=== PATIENT | male | born 1970 | race African-American/Black ===

== ENCOUNTER 2024-10-19 19:19 | Emergency (ER) | payer MEDICAID, SELFPAY ==
--- NOTE | 2024-10-19 19:15 | ECG_ITS ---
APPROVED REPORT Exam: Resting ECG HR:73 bpm ECG Measurements Heart Rate 73 AXES WI 160 P 56 QRSd 95 QRS 30 QT 393 T 42 QTc 420 Conclusion Sinus rhythm Electronically signed by : JOEL CRAVEN, 10/19/2024 21:26:17
[2024-10-19 19:21] VITALS: BP 159/116; PULSE 90; RESP 20; TEMP 36.7; O2SAT 100; BMI 26.7
--- NOTE | 2024-10-19 19:21 | XR_ITS ---
PROCEDURE INFORMATION: Exam: XR Chest Exam date and time: 10/19/2024 7:32 PM Age: 53 years old Clinical indication: Chest pain radiating to back; Additional info: Rib pain TECHNIQUE: Imaging protocol: Radiologic exam of the chest. Views: 2 views. COMPARISON: No relevant prior studies available. FINDINGS: Lungs: Unremarkable. No consolidation. Pleural spaces: Unremarkable. No pleural effusion. No pneumothorax. Heart/Mediastinum: Unremarkable. No cardiomegaly. Bones/joints: Unremarkable. IMPRESSION: No acute findings.
--- NOTE | 2024-10-19 19:24 | HMH.EDGENADL ---
Discharge Plan Disposition Patient Disposition: Home, Self-Care Condition: Good Referrals Follow up/Referrals: Provider,Referral, MD [Primary Care Provider] - See instructions Clinical Impressions Clinical Impression: Chest pain Instructions Patient Instructions: DI for Atypical Chest Pain Print Language Print Language: Mongolian Discharge ED Provider: Devante Castro General Adult HPI <Anamika Brunner (ED), PSYCHIATRIC NURSING ASSISTANT - Last Filed: 10/19/24 21:25> General Chief complaint: Chest Pain Stated complaint: Chest pain Time Seen by Provider: 10/19/24 19:20 History of Present Illness HPI narrative: 53-year-old male who presents to the ED today for complaint of chest pain and back pain that started 2 days ago. He says it got worse last night so he came to the ER today. He has had 1 episode of nausea and vomiting. He does not have shortness of air or abdominal pain. No fevers or chills. He had 1 episode of nausea and vomiting 2 days ago. He has no history of heart problems. He is on no meds and no allergies. Related Data Allergies Allergy/AdvReac Type Severity Reaction Status Date / Time No Known Allergies Allergy Verified 10/19/24 19:30 PFSH <Anamika Brunner (ED), PSYCHIATRIC NURSING ASSISTANT - Last Filed: 10/19/24 21:25> [facility] Disclaimer: The information contained in this section may have been updated after the patient was seen, as this information can be updated by other users. Social History (Updated 10/19/24 @ 20:25 by Anamika Brunner (ED), PSYCHIATRIC NURSING ASSISTANT) Smoking Status: Current every day smoker alcohol intake: never current occupational status: employed Travel in the last 8 weeks?: None Have you lived/traveled outside [place] in past 30 days?: No Contact w/someone who lives/traveled outside US past 30 days?: No Exposure to someone with infectious disease in past 14 days?: No Do you have a fever (greater than 100.4 F or 38 C)?: No Have you tested positive for COVID-19?: No Exposed to someone with COVID-19 in past 14 days?: No Do you have a sore throat?: No Do you have a cough?: No Do you have any weakness?: No Do you have any diarrhea?: No Are you experiencing any unusual bleeding?: No Do you have any muscle aches/pain?: No Do you have any abdominal pain?: No Are you experiencing loss of taste or smell?: No <Anamika Brunner (ED), PSYCHIATRIC NURSING ASSISTANT - Last Filed: 10/19/24 21:25> ROS Obtained: Yes Systems reviewed as appropriate & no additional complaints except as documented Constitutional Constitutional: Reports as per HPI Physical Exam <Anamika Brunner (ED), PSYCHIATRIC NURSING ASSISTANT - Last Filed: 10/19/24 21:25> General General appearance: alert and in no apparent distress Head Head exam: atraumatic and normocephalic Eye Eye exam: Present normal appearance, PERRL and EOMI ENT ENT exam: Present normal exam, normal oropharynx and mucous membranes moist Neck Neck exam: Present full ROM and trachea midline Respiratory Respiratory exam: Present normal lung sounds bilaterally Cardiovascular Cardiovascular exam: Present regular rate, normal rhythm, normal heart sounds, +S1 and +S2 Abdominal Exam Abdominal exam: Present soft and normal bowel sounds Extremities Exam Extremities exam: Present normal inspection, full ROM and normal capillary refill Back Exam Back exam: Present normal inspection Neurological Exam Neurological exam: Present alert, oriented X3 and normal gait Skin Skin exam: Present warm, dry and intact Medical Decision Making <Anamikajulius Brunner (ED), PSYCHIATRIC NURSING ASSISTANT - Last Filed: 10/19/24 21:25> Medical Records Screening: Per USPSTF and CDC recommendations, given the prevalence of disease in our region, it is our hospital?s policy to screen for HIV and viral Hepatitis for all patients aged 18 and over and those with ongoing risk factors. Hal Inquiry Pt receiving controlled substance: No Vital Signs: 10/19/24 19:21 10/19/24 21:38 Temperature 98.1 F 98.9 F Temperature Source Oral Pulse Rate 62 Pulse Rate [Left] 90 Respiratory Rate 20 20 Blood Pressure 168/89 H Blood Pressure [Right Arm] 159/116 H Blood Pressure Mean [Right Arm] 130 02 Sat by Pulse Oximetry 100 Oxygen Delivery Method Room Air Room Air Lab Data Lab Results 10/19/24 19:20: WBC 7.7, RBC 5.17, Hgb 14.8, Hct 45.4, MCV 87.8, MCH 28.6, MCHC 32.6, RDW 11.9, Plt Count 327, MPV 9.4, Neut % (Auto) 32.7 L, Lymph % (Auto) 55.1 H, [place] % (Auto) 10.7 H, Eos % (Auto) 0.7, Baso % (Auto) 0.7, Neut # (Auto) 2.5, Lymph # (Auto) 4.2, [place] # (Auto) 0.8, Eos # (Auto) 0.1, Baso # (Auto) 0.1, Sodium 141, Potassium 3.7, Chloride 109 H, Carbon Dioxide 22, Anion Gap 13.7, BUN 9, Creatinine 1.20, Estimated Creat Clear 84, Estimated GFR 64, Est GFR ( Amer) 77, Glucose 105 H, Calcium 8.9, Magnesium 2.0, Total Bilirubin 0.6, AST 35, ALT 30, Alkaline Phosphatase 98, Troponin I < 0.01, Total Protein 8.2, Albumin 5.0, Globulin 3.2, Albumin/Globulin Ratio 1.6, Lipase 421 H, HCV Ab FLORECITA w/Rflx PCR Qn Negative, HIV Ag/Ab Combo Qual Negative 10/19/24 19:20 10/19/24 19:20 Orders (Tests/Meds): ED MEDICATIONS Discontinued Medications Generic Name Dose Route Start Last Admin Trade Name Freq PRN Reason Stop Dose Admin Aspirin 324 mg 10/19/24 19:20 10/19/24 19:32 Aspirin 81mg Chewable Tablet PO 10/19/24 19:21 324 mg ONCE ONE Administration Famotidine 20 mg 10/19/24 19:20 10/19/24 19:32 Famotidine 20mg/2ml Vial IV 10/19/24 19:21 20 mg ONCE ONE Administration Iopamidol 75 ml 10/19/24 20:23 10/19/24 20:24 Iopamidol-370 (76%);100ml Bottle IV 10/19/24 20:24 75 ml ONCE ONE Administration Morphine Sulfate 4 mg 10/19/24 19:25 10/19/24 19:33 Morphine 4mg/Ml Syringe IV 10/19/24 19:26 4 mg ONCE ONE Administration Ondansetron HCl 4 mg 10/19/24 19:25 10/19/24 19:32 Ondansetron 4mg/2ml Vial IV 10/19/24 19:26 4 mg ONCE ONE Administration Sodium Chloride 8 ml 10/19/24 19:20 Sodium Chloride 0.9% 10ml Vial IV 11/18/24 19:19 NEEDED PRN dilute pepcid Sodium Chloride 10 ml 10/19/24 20:23 10/19/24 20:24 Sodium Chloride 0.9% 10ml Syr (Rad Only) IV 10/19/24 20:24 10 ml ONCE ONE Administration ORDERS Category Date Time Status CT abdomen pelvis w con Stat Cat Scan 10/19/24 20:13 Completed Chest XR 2 view (NOT portable) [XR chest 2V] Stat Exams 10/19/24 19:21 Completed CBC [Complete Blood Count Auto Diff] Stat Lab 10/19/24 19:20 Completed Comprehensive Metabolic Panel Stat Lab 10/19/24 19:20 Completed HIV Combo Stat Lab 10/19/24 19:20 Completed Hepatitis C Ab Qual. W/ RFX Stat Lab 10/19/24 19:20 Completed Lipase Stat Lab 10/19/24 19:20 Completed Magnesium Stat Lab 10/19/24 19:20 Completed Trop I [Troponin I] Stat Lab 10/19/24 19:20 Completed HEART Score History (anamnesis): Slightly suspicious ECG: Normal Age: 45-65 years Risk factors: No known risk factors Troponin: </= normal limit HEART Score: 1 Medical Decision Narrative: Insert review patient is a 53-year-old male presenting to the emergency department for evaluation of chest pain and back pain. Patient is hemodynamically stable and nontoxic-appearing upon arrival, afebrile. Differential diagnosis includes ACS, CAD, pancreatitis, among other things. Workup will be conducted with hematologic labs, specific imaging, provocative tests. Initial inventions include analgesics, famotidine and nausea medication. Initial workup reviewed by me hematologic labs are unremarkable. Imaging informally interpreted by me and remarkable for nothing acute on the chest x-ray and inflammatory process on the CT read by Dr. Castro. Please see the radiology report for formal imaging read remarkable for enteritis. Upon repeat evaluation patient's pain is improved. Patient is safe for discharge home. He and I discussed return precautions and following up with his PCP <Devante Castro MD - Last Filed: 10/23/24 07:24> Vital Signs: 10/19/24 19:21 10/19/24 21:38 Temperature 98.1 F 98.9 F Temperature Source Oral Pulse Rate 62 Pulse Rate [Left] 90 Respiratory Rate 20 20 Blood Pressure 168/89 H Blood Pressure [Right Arm] 159/116 H Blood Pressure Mean [Right Arm] 130 02 Sat by Pulse Oximetry 100 Oxygen Delivery Method Room Air Room Air Lab Data Lab Results 10/19/24 19:20: WBC 7.7, RBC 5.17, Hgb 14.8, Hct 45.4, MCV 87.8, MCH 28.6, MCHC 32.6, RDW 11.9, Plt Count 327, MPV 9.4, Neut % (Auto) 32.7 L, Lymph % (Auto) 55.1 H, [place] % (Auto) 10.7 H, Eos % (Auto) 0.7, Baso % (Auto) 0.7, Neut # (Auto) 2.5, Lymph # (Auto) 4.2, [place] # (Auto) 0.8, Eos # (Auto) 0.1, Baso # (Auto) 0.1, Sodium 141, Potassium 3.7, Chloride 109 H, Carbon Dioxide 22, Anion Gap 13.7, BUN 9, Creatinine 1.20, Estimated Creat Clear 84, Estimated GFR 64, Est GFR ( Amer) 77, Glucose 105 H, Calcium 8.9, Magnesium 2.0, Total Bilirubin 0.6, AST 35, ALT 30, Alkaline Phosphatase 98, Troponin I < 0.01, Total Protein 8.2, Albumin 5.0, Globulin 3.2, Albumin/Globulin Ratio 1.6, Lipase 421 H, HCV Ab FLOR[place]ITA w/Rflx PCR Qn Negative, HIV Ag/Ab Combo Qual Negative Orders (Tests/Meds): ED MEDICATIONS Discontinued Medications Generic Name Dose Route Start Last Admin Trade Name Refugio PRN Reason Stop Dose Admin Aspirin 324 mg 10/19/24 19:20 10/19/24 19:32 Aspirin 81mg Chewable Tablet PO 10/19/24 19:21 324 mg ONCE ONE Administration Famotidine 20 mg 10/19/24 19:20 10/19/24 19:32 Famotidine 20mg/2ml Vial IV 10/19/24 19:21 20 mg ONCE ONE Administration Iopamidol 75 ml 10/19/24 20:23 10/19/24 20:24 Iopamidol-370 (76%);100ml Bottle IV 10/19/24 20:24 75 ml ONCE ONE Administration Morphine Sulfate 4 mg 10/19/24 19:25 10/19/24 19:33 Morphine 4mg/Ml Syringe IV 10/19/24 19:26 4 mg ONCE ONE Administration Ondansetron HCl 4 mg 10/19/24 19:25 10/19/24 19:32 Ondansetron 4mg/2ml Vial IV 10/19/24 19:26 4 mg ONCE ONE Administration Sodium Chloride 8 ml 10/19/24 19:20 Sodium Chloride 0.9% 10ml Vial IV 11/18/24 19:19 NEEDED PRN dilute pepcid Sodium Chloride 10 ml 10/19/24 20:23 10/19/24 20:24 Sodium Chloride 0.9% 10ml Syr (Rad Only) IV 10/19/24 20:24 10 ml ONCE ONE Administration ORDERS Category Date Time Status CT abdomen pelvis w con Stat Cat Scan 10/19/24 20:13 Completed Chest XR 2 view (NOT portable) [XR chest 2V] Stat Exams 10/19/24 19:21 Completed CBC [Complete Blood Count Auto Diff] Stat Lab 10/19/24 19:20 Completed Comprehensive Metabolic Panel Stat Lab 10/19/24 19:20 Completed HIV Combo Stat Lab 10/19/24 19:20 Completed Hepatitis C Ab Qual. W/ RFX Stat Lab 10/19/24 19:20 Completed Lipase Stat Lab 10/19/24 19:20 Completed Magnesium Stat Lab 10/19/24 19:20 Completed Trop I [Troponin I] Stat Lab 10/19/24 19:20 Completed ECG Data Tracing #1: I reviewed this ECG and interpreted as documented below: (Sinus rhythm 73 bpm with VT 160, QRS 95, QTc 420. Nonspecific T wave changes. Normal axis) HEART Score HEART Score: 1 Medical Decision Narrative: Insert review patient is a 53-year-old male presenting to the emergency department for evaluation of chest pain and back pain. Patient is hemodynamically stable and nontoxic-appearing upon arrival, afebrile. Differential diagnosis includes ACS, CAD, pancreatitis, among other things. Workup will be conducted with hematologic labs, specific imaging, provocative tests. Initial inventions include analgesics, famotidine and nausea medication. Initial workup reviewed by me hematologic labs are unremarkable. Imaging informally interpreted by me and remarkable for nothing acute on the chest x-ray and inflammatory process on the CT read by Dr. Castro. Please see the radiology report for formal imaging read remarkable for enteritis. Upon repeat evaluation patient's pain is improved. Patient is safe for discharge home. He and I discussed return precautions and following up with his PCP I was consulted by the [facility], and we discussed the complexity of the problems being addressed. I approved the treatment and management plan for this patient's care in the Emergency Department, thus performing a substantive portion of the medical decision making. Devante Castro MD Critical Care <Anamika Brunner (ED), PSYCHIATRIC NURSING ASSISTANT - Last Filed: 10/19/24 21:25> Critical Care Time Critical Care Time: No
[2024-10-19 19:29] LABS: Basophils # 0.1 K/mm3 (0-0.2); Basophils % 0.7 % (0.1-2.0); Eosinophils # 0.1 Kmm3 (0.0-0.4); Eosinophils % 0.7 % (0.1-12.0); Hematocrit 45.4 % (42.0-52.0); Hemoglobin 14.8 g/dL (14.1-18.0); Lymphocytes # 4.2 K/mm3 (0.7-4.5); Lymphocytes % 55.1 % (10-50); Mean Corpuscular HGB Conc 32.6 g/dL (31.8-35.4); Mean Corpuscular Hemoglobin 28.6 pg (27.0-31.2); Mean Corpuscular Volume 87.8 fl (80-94); Mean Platelet Volume 9.4 fl (7.4-10.4); Monocytes # 0.8 K/mm3 (0.1-1.0); Monocytes % 10.7 % (1.7-9.3); Neutrophils # 2.5 K/mm3 (1.8-7.8); Neutrophils % 32.7 % (37.0-80.0); Nucleated Red Blood Cells # 0 10^3/uL; Nucleated Red Blood Cells % 0 %; Platelet Count 327 K/mm3 (142-424); Red Blood Count 5.17 M/mm3 (4.60-6.20); Red Cell Distribution Width 11.9 % (11.5-17.5); Red Cell Distribution Width-SD 38.5 fL; White Blood Count 7.7 K/mm3 (4.8-10.8)
[2024-10-19] MEDS: ONDANSETRON 4MG/2ML VIAL 4 MG IV (19:32)
[2024-10-19] MEDS: ASPIRIN 81MG CHEWABLE TABLET 324 MG PO (19:32)
[2024-10-19] MEDS: FAMOTIDINE 20MG/2ML VIAL 20 MG IV (19:32)
[2024-10-19] MEDS: MORPHINE 4MG/ML SYRINGE 4 MG IV (19:33)
[2024-10-19 19:36] LABS: Chloride 109 mmol/L (98-107)
[2024-10-19 19:37] LABS: Potassium 3.7 mmoL/L (3.5-5.1); Sodium 141 mmol/L (136-145)
[2024-10-19 19:39] LABS: Alanine Aminotransferase 30 U/L (12-78); Anion Gap 13.7 mEq/L (5-15); Aspartate Amino Transferase 35 U/L (17-59); Blood Urea Nitrogen 9 mg/dl (9-20); Carbon Dioxide 22 mmol/L (22.0-30.0); Creatinine Clearance Estimated 84 mL/min (50-200); Estimated Glomerular Filt Rate 64 ml/min (>60); GFR (African American) 77 ML/MIN (>60)
[2024-10-19 19:40] LABS: Albumin/Globulin Ratio 1.6 (1.1-1.8); Alkaline Phosphatase 98 U/L (38-126); Bilirubin,Total 0.6 mg/dl (0.2-1.3); Calcium 8.9 mg/dl (8.4-10.2); Globulin 3.2 g/dL (1.3-3.2); Glucose 105 mg/dl (74-100); Lipase 421 U/L (23-300); Total Protein,Serum 8.2 g/dl (6.3-8.2)
[2024-10-19 19:52] LABS: Troponin I < 0.01 ng/ml (0.00-0.034)
--- NOTE | 2024-10-19 20:13 | CT_ITS ---
PROCEDURE INFORMATION: Exam: CT Abdomen And Pelvis With Contrast Exam date and time: 10/19/2024 8:24 PM Age: 53 years old Clinical indication: Abdominal pain TECHNIQUE: Imaging protocol: Computed tomography of the abdomen and pelvis with contrast. Radiation optimization: All CT scans at this facility use at least one of these dose optimization techniques: automated exposure control; mA and/or kV adjustment per patient size (includes targeted exams where dose is matched to clinical indication); or iterative reconstruction. Contrast material: ISOVUE; Contrast volume: 75 ml; Contrast route: IV; COMPARISON: CR XR CHEST 2V 10/19/2024 7:32 PM FINDINGS: Liver: At least 4 fluid density lesions throughout the liver (the largest in the left hepatic lobe measuring 1.4 cm (series 3, image 19). Likely cysts or benign hemangiomas. Nonemergent ultrasound follow-up is recommended. Gallbladder and biliary ducts: Normal. No calcified stones. No ductal dilation. Pancreas: Normal. No ductal dilation. Spleen: Normal. No splenomegaly. Adrenal glands: Normal. No mass. 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 Bilateral subcentimeter hypodense renal lesions are too small to characterize, but likely cysts. They can be followed with nonemergent ultrasound if warranted. No concerning renal lesions, hydronephrosis, hydroureter, or nephrolithiasis. Stomach and bowel: Though there is no significant bowel wall thickening or inflammatory changes, most of the distal ileum and part of the ascending colon and transverse colon are fluid-filled. Appendix: No evidence of appendicitis. Intraperitoneal space: Unremarkable. No free air. No significant fluid collection. Vasculature: Mild atherosclerosis. Lymph nodes: Unremarkable. No enlarged lymph nodes. Urinary bladder: Unremarkable as visualized. Reproductive: Unremarkable as visualized. Bones/joints: Mild degenerative changes at L4-L5 and L5-S1. No acute fracture. Soft tissues: Unremarkable. IMPRESSION: 1. Though there is no significant bowel wall thickening or inflammatory changes, most of the distal ileum and part of the ascending colon and transverse colon are fluid-filled. This is usually seen with a mild enteritis/diarrheal disease. No bowel obstruction. 2. No other acute pathology. COMMENTS: Consistent with the [employer]'s Incidental Findings Committee white paper (J Am Koki Radiol 2018): Any incidental renal lesion less than 1 cm or classified as too small to characterize, or any incidental cystic renal lesion characterized as simple-appearing, is likely benign. No follow-up imaging is recommended for these lesions per consensus recommendations based on imaging criteria.
[2024-10-19] MEDS: IOPAMIDOL-370 (76%);100ML BOTTLE 75 ML IV (20:24)
[2024-10-19] MEDS: SODIUM CHLORIDE 0.9% 10ML SYR (RAD ONLY) 10 ML IV (20:24)
[2024-10-19 20:35] LABS: HIV Combo NEGATIVE (Negative)
[2024-10-19 20:44] LABS: Hepatitis C Ab Qual. W/ RFX NEGATIVE (Negative)
[2024-10-19 21:38] VITALS: BP 168/89; PULSE 62; RESP 20; TEMP 37.2; O2SAT 99
== END 2024-10-19 21:41 | disposition home or self-care (01) ==
PROVIDERS: Nurse Practitioner; Emergency Provider Emergency Medicine
DX: R07.89 Other chest pain (principal); R11.2 Nausea with vomiting, unspecified; Z11.59 Encounter for screening for other viral diseases; Z11.4 Encounter for screening for human immunodeficiency virus [HIV]
CPT/HCPCS: 71046; 74177; 80053; 83690; 83735; 84484; 85025; 86803; 87389; 93005; 96374; 96375; 99285; J2270; J2405; Q9967

== ENCOUNTER 2025-05-13 17:22 | Emergency (ER) | payer MEDICAID, SELFPAY ==
[2025-05-13 17:23] VITALS: BP 164/93; PULSE 86; RESP 16; TEMP 37.3; O2SAT 100; BMI 26.7
--- NOTE | 2025-05-13 17:25 | ED_ITS ---
Discharge Plan Disposition Patient Disposition: Home, Self-Care Referrals Follow up/Referrals: Provider,Marj, [Primary Care Provider, Medical] - See instructions Jemal Mcbride MD [Staff Physician, Cardiology] - See instructions Shaq Kruse MD [Staff Physician, Family Practice] - See instructions Activity Restrictions/Add. Instructions Additional Instructions/Restrictions: At this time it was felt you are safe to be discharged home. If new or worsening symptoms please do not hesitate to return the emergency department. Please call and schedule an appointment with Dr. Kruse to establish care as a new family doctor, I suspect that you have acid reflux and he can manage this over the terrestrial ecologist. However out of an abundance of caution I recommend that you call and schedule appoint with Dr. Mcbride's office for initial cardiac evaluation Clinical Impressions Clinical Impression: Chest pain Print Language Print Language: Cook Islander Discharge ED Provider: Jose Camarena General Adult HPI <NATHALIE Shafer - Last Filed: 05/13/25 18:51> General Chief complaint: Shortness of Breath/Dyspnea Stated complaint: SOA, chest and back pain Time Seen by Provider: 05/13/25 17:24 Mode of Arrival: Ambulatory Source of Information: Patient and Medical Record Limitations: No Limitations History of Present Illness HPI narrative: 54-year-old male presents to the emergency department with retrosternal sharp chest pain that radiates into his back that started around 8 PM last night, it is waxed and waned, at maximal was a 10 out of 10, patient states he had little to no sleep , due to the pain, he also endorses nonproductive cough, fever and chills, Tmax of 101 ?F , according to the patient. Patient endorses shortness of breath with his chest pain, no trauma or injury per history, no nausea no vomiting no abdominal pain no constipation no urinary symptomatology, no diarrhea no hematuria melena hematochezia or hematemesis, patient is a current everyday smoker, also admits to current THC/marijuana use denies any other alcohol or drug use. Patient has no other real relevant past medical history takes no medications daily at home. Initial triage vitals are unremarkable. Currently rates his pain a 6 out of 10. Please note that above description of symptoms, in this electronic medical record under categorization of recalled from ER triage doctor by RN are reflective of an initial nursing assessment, however, is not reflective of my full history and physical exam that was personally taken and clarified. Consequentially, this preceding description of symptoms, which may include the patient's categorized chief complaint in the EMR, do not reflect my personal clinical impression, and the ultimate description of history of present illness and patient stated complaints should be deferred to this section of the note. Unless stated otherwise or congruent with this section of the note, additional signs, symptoms, or incongruence should be interpreted as inaccurate with my clinical impression. Onset (ago): hour(s) Related Data Allergies Allergy/AdvReac Type Severity Reaction Status Date / Time No Known Allergies Allergy Verified 10/19/24 19:30 [facility] <NATHALIE Shafer - Last Filed: 05/13/25 18:51> [facility] Disclaimer: The information contained in this section may have been updated after the patient was seen, as this information can be updated by other users. Social History Smoking Status: Current every day smoker alcohol intake: never current occupational status: employed Travel in the last 8 weeks?: None Have you lived/traveled outside US in past 30 days?: No Contact w/someone who lives/traveled outside US past 30 days?: No Exposure to someone with infectious disease in past 14 days?: No Do you have a fever (greater than 100.4 F or 38 C)?: No Have you tested positive for COVID-19?: No Exposed to someone with COVID-19 in past 14 days?: No Do you have a sore throat?: No Do you have a cough?: No Do you have any weakness?: No Do you have any diarrhea?: No Are you experiencing any unusual bleeding?: No Do you have any muscle aches/pain?: No Do you have any abdominal pain?: No Are you experiencing loss of taste or smell?: No <NATHALIE Shafer - Last Filed: 05/13/25 18:51> ROS Obtained: Yes All systems reviewed & no additional complaints except as documented Physical Exam <NATHALIE Shafer - Last Filed: 05/13/25 18:51> General General appearance: alert and in no apparent distress Head Head exam: atraumatic and normocephalic Eye Eye exam: Present normal appearance, PERRL and EOMI Neck Neck exam: Present full ROM; Absent meningismus Chest Chest inspection: Present normal inspection; Absent tenderness Respiratory Respiratory exam: Present wheezes and other (Mild diffuse wheezes noted throughout bilateral lung stephenson); Absent normal lung sounds bilaterally, respiratory distress, stridor, accessory muscle use or prolonged expiratory phase Cardiovascular Cardiovascular exam: Present normal rhythm and other (Pulses equal and symmetric in bilateral upper and lower extremities) Abdominal Exam Abdominal exam: Absent distention, tenderness or guarding Extremities Exam Extremities exam: Absent edema Neurological Exam Neurological exam: Present alert Psychiatric Psychiatric exam: Present normal affect Skin Skin exam: Present warm and dry Medical Decision Making <NATHALIE Shafer - Last Filed: 05/13/25 18:51> Medical Records Medical records reviewed: Yes I reviewed the patient's medical records. Screening: Per USPSTF and CDC recommendations, given the prevalence of disease in our region, it is our hospital?s policy to screen for HIV and viral Hepatitis for all patients aged 18 and over and those with ongoing risk factors. Hal Inquiry Pt receiving controlled substance: Yes Hal was queried for this patient: No Reason not queried -: Emergent pt cond-no time Risks and benefits of using a controlled substance: were discussed with pt by me Vital Signs: 05/13/25 17:23 05/13/25 17:23 05/13/25 17:54 Temperature 99.2 F 99.2 F Temperature Source Oral Oral Pulse Rate 86 Pulse Rate [Right] 86 Respiratory Rate 16 16 Blood Pressure 164/93 H Blood Pressure [Right Arm] 164/93 H Blood Pressure Mean Blood Pressure Mean [Right Arm] 116 Blood Pressure Source Automatic Cuff Blood Pressure Source [Right Arm] Automatic Cuff Blood Pressure Position Supine Blood Pressure Position [Right Arm] Supine 02 Sat by Pulse Oximetry 100 100 100 Oxygen Delivery Method Room Air Room Air Room Air 05/13/25 18:00 05/13/25 18:54 05/13/25 19:00 Temperature Temperature Source Pulse Rate 75 79 74 Pulse Rate [Right] Respiratory Rate 16 19 19 Blood Pressure 137/90 145/97 H Blood Pressure [Right Arm] Blood Pressure Mean 113 113 Blood Pressure Mean [Right Arm] Blood Pressure Source Blood Pressure Source [Right Arm] Blood Pressure Position Blood Pressure Position [Right Arm] 02 Sat by Pulse Oximetry 98 99 97 Oxygen Delivery Method 05/13/25 19:00 Temperature Temperature Source Pulse Rate Pulse Rate [Right] Respiratory Rate Blood Pressure 129/94 H Blood Pressure [Right Arm] Blood Pressure Mean 107 Blood Pressure Mean [Right Arm] Blood Pressure Source Blood Pressure Source [Right Arm] Blood Pressure Position Blood Pressure Position [Right Arm] 02 Sat by Pulse Oximetry Oxygen Delivery Method Lab Data Lab results reviewed: Yes I reviewed the patient's lab results. Lab Results 05/13/25 17:41: WBC 7.0, RBC 4.70, Hgb 13.2 L, Hct 41.2 L, MCV 87.7, MCH 28.1, MCHC 32.0, RDW 12.1, Plt Count 262, MPV 9.8, Neut % (Auto) 73.1, Lymph % (Auto) 13.3, Wilbarger % (Auto) 12.0 H, Eos % (Auto) 0.7, Baso % (Auto) 0.6, Neut # (Auto) 5.1, Lymph # (Auto) 0.9, [place]barger # (Auto) 0.8, Eos # (Auto) 0.1, Baso # (Auto) 0.0, PT 11.1, INR 1.00, Sodium 134 L, Potassium 4.1, Chloride 105, Carbon Dioxide 23, Anion Gap 10.1, BUN 6 L, Creatinine 1.00, Estimated Creat Clear 99, Estimated GFR 78, Est GFR ( Amer) 95, Glucose 96, Calcium 8.8, Magnesium 1.9, Total Bilirubin 0.8, AST 42, ALT 28, Alkaline Phosphatase 90, Troponin I < 0.01, NT-Pro-B Natriuret Pep 93.1, Total Protein 7.9, Albumin 4.8, Globulin 3.1, Albumin/Globulin Ratio 1.5, HIV Ag/Ab Combo Qual Negative 05/13/25 18:19: SARS-CoV-2 (PCR) Not detected, Influenza A Untype (PCR) Not detected, Influenza Type B (PCR) Not detected 05/13/25 17:41 05/13/25 17:41 Orders (Tests/Meds): ED MEDICATIONS Generic Name Dose Route Start Last Admin Trade Name Freq PRN Reason Stop Dose Admin Sodium Chloride 10 ml 05/13/25 18:27 Sodium Chloride 0.9% 10ml Syr (Rad Only) IV 06/12/25 18:26 NEEDED PRN Maintain IV Site Discontinued Medications Generic Name Dose Route Start Last Admin Trade Name Freq PRN Reason Stop Dose Admin Aspirin 324 mg 05/13/25 17:32 05/13/25 17:47 Aspirin 81mg Chewable Tablet PO 05/13/25 17:33 324 mg ONCE ONE Administration Belladonna Alkaloids 60 ml 05/13/25 18:39 05/13/25 18:49 Belladonna Alkaloids 60 Ml Ml PO 05/13/25 18:40 60 ml ONCE ONE Administration Iopamidol 80 ml 05/13/25 18:27 05/13/25 18:31 Iopamidol-370 (76%);100ml Bottle IV 05/13/25 18:28 80 ml ONCE ONE Administration Morphine Sulfate 4 mg 05/13/25 17:32 05/13/25 17:47 Morphine 4mg/Ml Syringe IV 05/13/25 17:33 4 mg ONCE ONE Administration Ondansetron HCl 4 mg 05/13/25 17:32 05/13/25 17:46 Ondansetron 4mg/2ml Vial IV 05/13/25 17:33 4 mg ONCE ONE Administration Sodium Chloride 50 ml 05/13/25 18:27 05/13/25 18:31 0.9 % Sodium Chloride 50 Ml Vial IV 05/13/25 18:28 50 ml ONCE ONE Administration ORDERS Category Date Time Status CTA Chest [CT angio chest - dissection] Stat Cat Scan 05/13/25 17:31 Completed XR chest portable Stat Exams 05/13/25 17:31 Completed Complete Blood Count Auto Diff Stat Lab 05/13/25 17:41 Completed Comprehensive Metabolic Panel Stat Lab 05/13/25 17:41 Completed HIV Combo Stat Lab 05/13/25 17:41 Completed Hepatitis C Ab Qual. W/ RFX Stat Lab 05/13/25 17:41 Received Magnesium Stat Lab 05/13/25 17:41 Completed NT Pro Brain Natriuretic Pep. Stat Lab 05/13/25 17:41 Completed PT INR [Prothrombin Time INR] Stat Lab 05/13/25 17:41 Completed Rapid PCR Covid and Flu A/B Stat Lab 05/13/25 18:19 Completed Troponin I Q3H Lab 05/13/25 20:45 Ordered Troponin I Q3H Lab 05/13/25 23:45 Ordered Troponin I Stat Lab 05/13/25 17:41 Completed Medical Decision Narrative: 54-year-old male presents emergency department with retrosternal chest pain and radiation to his back with nonproductive cough and shortness of air that started last night differential diagnose include but not limited to aortic dissection, PE, ACS, pneumonia, costochondritis, COPD exacerbation, cardiac arrhythmia, electrolyte disturbance, rib fracture, anxiety reaction, panic attack, acute bronchitis, viral URI among others Will obtain EKG, basic laboratory studies magnesium level proBNP PT/INR PCR COVID and flu, troponin, CXR, CTA chest with and without contrast dissection protocol, will give 324 mg p.o. aspirin and 4 mg IV morphine and 4 mg IV Zofran for pain and nausea. CBC is unremarkable CMP is noted for mild hyponatremia 134 otherwise unremarkable. Initial troponin is less than 0.01 proBNP within normal limits. Coags within normal limits. I was notified by nursing staff at approximately 6:38 PM that the patient is now complaining of some chest burning , will trial GI cocktail. Reexamination the patient at approximately 6:40 PM patient states his pain is currently now 2 out of 10, at this time patient is still pending receiving GI cocktail. I discussed this patient's case with attending physician Dr. Camarena at shift change, he will be assuming the patient's care/workup, disposition is pending imaging studies and clinical reassessment. <Jose Camarena MD - Last Filed: 05/13/25 19:13> Vital Signs: 05/13/25 17:23 05/13/25 17:23 05/13/25 17:54 Temperature 99.2 F 99.2 F Temperature Source Oral Oral Pulse Rate 86 Pulse Rate [Right] 86 Respiratory Rate 16 16 Blood Pressure 164/93 H Blood Pressure [Right Arm] 164/93 H Blood Pressure Mean Blood Pressure Mean [Right Arm] 116 Blood Pressure Source Automatic Cuff Blood Pressure Source [Right Arm] Automatic Cuff Blood Pressure Position Supine Blood Pressure Position [Right Arm] Supine 02 Sat by Pulse Oximetry 100 100 100 Oxygen Delivery Method Room Air Room Air Room Air 05/13/25 18:00 05/13/25 18:54 05/13/25 19:00 Temperature Temperature Source Pulse Rate 75 79 74 Pulse Rate [Right] Respiratory Rate 16 19 19 Blood Pressure 137/90 145/97 H Blood Pressure [Right Arm] Blood Pressure Mean 113 113 Blood Pressure Mean [Right Arm] Blood Pressure Source Blood Pressure Source [Right Arm] Blood Pressure Position Blood Pressure Position [Right Arm] 02 Sat by Pulse Oximetry 98 99 97 Oxygen Delivery Method 05/13/25 19:00 Temperature Temperature Source Pulse Rate Pulse Rate [Right] Respiratory Rate Blood Pressure 129/94 H Blood Pressure [Right Arm] Blood Pressure Mean 107 Blood Pressure Mean [Right Arm] Blood Pressure Source Blood Pressure Source [Right Arm] Blood Pressure Position Blood Pressure Position [Right Arm] 02 Sat by Pulse Oximetry Oxygen Delivery Method Lab Data Lab Results 05/13/25 17:41: WBC 7.0, RBC 4.70, Hgb 13.2 L, Hct 41.2 L, MCV 87.7, MCH 28.1, MCHC 32.0, RDW 12.1, Plt Count 262, MPV 9.8, Neut % (Auto) 73.1, Lymph % (Auto) 13.3, [place] % (Auto) 12.0 H, Eos % (Auto) 0.7, Baso % (Auto) 0.6, Neut # (Auto) 5.1, Lymph # (Auto) 0.9, [place] # (Auto) 0.8, Eos # (Auto) 0.1, Baso # (Auto) 0.0, PT 11.1, INR 1.00, Sodium 134 L, Potassium 4.1, Chloride 105, Carbon Dioxide 23, Anion Gap 10.1, BUN 6 L, Creatinine 1.00, Estimated Creat Clear 99, Estimated GFR 78, Est GFR ( Amer) 95, Glucose 96, Calcium 8.8, Magnesium 1.9, Total Bilirubin 0.8, AST 42, ALT 28, Alkaline Phosphatase 90, Troponin I < 0.01, NT-Pro-B Natriuret Pep 93.1, Total Protein 7.9, Albumin 4.8, Globulin 3.1, Albumin/Globulin Ratio 1.5, HIV Ag/Ab Combo Qual Negative 05/13/25 18:19: SARS-CoV-2 (PCR) Not detected, Influenza A Untype (PCR) Not detected, Influenza Type B (PCR) Not detected Orders (Tests/Meds): ED MEDICATIONS Generic Name Dose Route Start Last Admin Trade Name Freq PRN Reason Stop Dose Admin Sodium Chloride 10 ml 05/13/25 18:27 Sodium Chloride 0.9% 10ml Syr (Rad Only) IV 06/12/25 18:26 NEEDED PRN Maintain IV Site Discontinued Medications Generic Name Dose Route Start Last Admin Trade Name Gaudencioq PRN Reason Stop Dose Admin Aspirin 324 mg 05/13/25 17:32 05/13/25 17:47 Aspirin 81mg Chewable Tablet PO 05/13/25 17:33 324 mg ONCE ONE Administration Belladonna Alkaloids 60 ml 05/13/25 18:39 05/13/25 18:49 Belladonna Alkaloids 60 Ml Ml PO 05/13/25 18:40 60 ml ONCE ONE Administration Iopamidol 80 ml 05/13/25 18:27 05/13/25 18:31 Iopamidol-370 (76%);100ml Bottle IV 05/13/25 18:28 80 ml ONCE ONE Administration Morphine Sulfate 4 mg 05/13/25 17:32 05/13/25 17:47 Morphine 4mg/Ml Syringe IV 05/13/25 17:33 4 mg ONCE ONE Administration Ondansetron HCl 4 mg 05/13/25 17:32 05/13/25 17:46 Ondansetron 4mg/2ml Vial IV 05/13/25 17:33 4 mg ONCE ONE Administration Sodium Chloride 50 ml 05/13/25 18:27 05/13/25 18:31 0.9 % Sodium Chloride 50 Ml Vial IV 05/13/25 18:28 50 ml ONCE ONE Administration ORDERS Category Date Time Status CTA Chest [CT angio chest - dissection] Stat Cat Scan 05/13/25 17:31 Completed XR chest portable Stat Exams 05/13/25 17:31 Completed Complete Blood Count Auto Diff Stat Lab 05/13/25 17:41 Completed Comprehensive Metabolic Panel Stat Lab 05/13/25 17:41 Completed HIV Combo Stat Lab 05/13/25 17:41 Completed Hepatitis C Ab Qual. W/ RFX Stat Lab 05/13/25 17:41 Received Magnesium Stat Lab 05/13/25 17:41 Completed NT Pro Brain Natriuretic Pep. Stat Lab 05/13/25 17:41 Completed PT INR [Prothrombin Time INR] Stat Lab 05/13/25 17:41 Completed Rapid PCR Covid and Flu A/B Stat Lab 05/13/25 18:19 Completed Troponin I Q3H Lab 05/13/25 20:45 Ordered Troponin I Q3H Lab 05/13/25 23:45 Ordered Troponin I Stat Lab 05/13/25 17:41 Completed ECG Data Tracing #1: Independently interpreted by me rate is 83, rhythm is regular, axis is normal, no ST elevation in anatomical contiguous leads, QTc 426 Medical Decision Narrative: 54-year-old male presents emergency department with retrosternal chest pain and radiation to his back with nonproductive cough and shortness of air that started last night differential diagnose include but not limited to aortic dissection, PE, ACS, pneumonia, costochondritis, COPD exacerbation, cardiac arrhythmia, electrolyte disturbance, rib fracture, anxiety reaction, panic attack, acute bronchitis, viral URI among others Will obtain EKG, basic laboratory studies magnesium level proBNP PT/INR PCR COVID and flu, troponin, CXR, CTA chest with and without contrast dissection protocol, will give 324 mg p.o. aspirin and 4 mg IV morphine and 4 mg IV Zofran for pain and nausea. CBC is unremarkable CMP is noted for mild hyponatremia 134 otherwise unremarkable. Initial troponin is less than 0.01 proBNP within normal limits. Coags within normal limits. I was notified by nursing staff at approximately 6:38 PM that the patient is now complaining of some chest burning , will trial GI cocktail. Reexamination the patient at approximately 6:40 PM patient states his pain is currently now 2 out of 10, at this time patient is still pending receiving GI cocktail. I discussed this patient's case with attending physician Dr. Camarena at shift change, he will be assuming the patient's care/workup, disposition is pending imaging studies and clinical reassessment. Jose Camarena: Upon assumption of care patient is hemodynamically stable. Workup reviewed by me no significant leukocytosis no transfusable anemia no PATRICE or critical electrolyte abnormality. Viral swab negative initial troponin undetectably low. Chest CTA no acute findings. Given that patient has a burning sensation that was significantly relieved with GI cocktail I suspect that patient has undiagnosed acid reflux. Given the duration of his symptoms ACS has been ruled out given the sensitivity of troponins. Patient is appropriate for discharge at this time and was given return precautions and verbalized understanding. Will be referred to cardiology for initial evaluation out of an abundance of caution and will establish care with Dr. Kruse. Critical Care <NATHALIE Shafer - Last Filed: 05/13/25 18:51> Critical Care Time Critical Care Time: No
--- NOTE | 2025-05-13 17:29 | ECG_ITS ---
APPROVED REPORT Exam: Resting ECG HR:83 bpm ECG Measurements Heart Rate 83 AXES DE 157 P 53 QRSd 94 QRS 41 QT 386 T 38 QTc 426 Conclusion SINUS RHYTHM NONSPECIFIC T-WAVE ABNORMALITY BORDERLINE ECG Electronically signed by : SHADI ALFONSO, 05/18/2025 07:39:55
--- NOTE | 2025-05-13 17:31 | XR_ITS ---
PROCEDURE INFORMATION: Exam: XR Chest Exam date and time: 05/13/2025 6:29 PM Age: 54 years old Clinical indication: Shortness of breath; Additional info: SOA and cp TECHNIQUE: Imaging protocol: Radiologic exam of the chest. Views: 1 view. COMPARISON: CT ANGIO CHEST 05/13/2025 6:25 PM FINDINGS: Lungs: Unremarkable. No consolidation. Pleural spaces: Unremarkable. No pleural effusion. No pneumothorax. Heart/Mediastinum: Unremarkable. No cardiomegaly. Bones/joints: Unremarkable. IMPRESSION: No acute findings.
--- NOTE | 2025-05-13 17:31 | CT_ITS ---
PROCEDURE INFORMATION: Exam: CTA Chest With Contrast Exam date and time: 05/13/2025 6:25 PM Age: 54 years old Clinical indication: Other: Retrosternal cp radiating to back TECHNIQUE: Imaging protocol: Computed tomographic angiography of the chest with contrast. Exam focused on the arteries. 3D rendering (Not supervised by radiologist): MIP and/or 3D reconstructed images were created by the technologist. Radiation optimization: All CT scans at this facility use at least one of these dose optimization techniques: automated exposure control; mA and/or kV adjustment per patient size (includes targeted exams where dose is matched to clinical indication); or iterative reconstruction. Contrast material: ISO 370; Contrast volume: 80 ml; Contrast route: INTRAVENOUS (IV); COMPARISON: CR XR CHEST 2V 10/19/2024 7:32 PM FINDINGS: Pulmonary arteries: No CT angiography evidence of pulmonary embolism. Aorta: Unremarkable. No aortic aneurysm. No aortic dissection. Lungs: Mild centrilobular emphysematous changes with an apical gradient is present. Dependent bilateral lung base opacities favor atelectasis. Pleural spaces: Unremarkable. No pneumothorax. No pleural effusion. Heart: Unremarkable. No cardiomegaly. No pericardial effusion. Lymph nodes: Unremarkable. No enlarged lymph nodes. Liver: Multiple hypoattenuating circumscribed structures of the liver compatible with simple hepatic cysts with the largest measuring 1.2 cm in diameter. Bones/joints: Unremarkable. No acute fracture. Soft tissues: Unremarkable. IMPRESSION: No CT angiography evidence of pulmonary embolism. COMMENTS: The presence of pulmonary emphysema on CT is an independent risk factor for lung cancer. In the absence of a history or active diagnosis of lung cancer, it is recommended that this patient with emphysema be evaluated for enrollment in a low dose CT lung cancer screening program.
[2025-05-13] MEDS: ONDANSETRON 4MG/2ML VIAL 4 MG IV (17:46)
[2025-05-13] MEDS: MORPHINE 4MG/ML SYRINGE 4 MG IV (17:47)
[2025-05-13] MEDS: ASPIRIN 81MG CHEWABLE TABLET 324 MG PO (17:47)
[2025-05-13 17:53] LABS: Hematocrit 41.2 % (42.0-52.0); Hemoglobin 13.2 g/dL (14.1-18.0); Immature Granulocytes % 0.3 %; Mean Corpuscular HGB Conc 32.0 g/dL (31.8-35.4); Mean Corpuscular Hemoglobin 28.1 pg (27.0-31.2); Mean Corpuscular Volume 87.7 fl (80-94); Nucleated Red Blood Cells % 0 %; Platelet Count 262 K/mm3 (142-424); Red Blood Count 4.70 M/mm3 (4.60-6.20); Red Cell Distribution Width-SD 39.1 fL; White Blood Count 7.0 K/mm3 (4.8-10.8)
[2025-05-13 17:54] VITALS: O2SAT 100
[2025-05-13 18:00] VITALS: BP 137/90; PULSE 75; RESP 16; O2SAT 98
[2025-05-13 18:07] LABS: Alanine Aminotransferase 28 U/L (12-78); Albumin Level 4.8 g/dl (3.5-5.0); Albumin/Globulin Ratio 1.5 (1.1-1.8); Alkaline Phosphatase 90 U/L (38-126); Anion Gap 10.1 mEq/L (5-15); Aspartate Amino Transferase 42 U/L (17-59); Bilirubin,Total 0.8 mg/dl (0.2-1.3); Blood Urea Nitrogen 6 mg/dl (9-20); Calcium 8.8 mg/dl (8.4-10.2); Carbon Dioxide 23 mmol/L (22.0-30.0); Chloride 105 mmol/L (98-107); Creatinine Clearance Estimated 99 mL/min (50-200); Creatinine,Serum 1.00 mg/dl (0.66-1.25); Estimated Glomerular Filt Rate 78 ml/min (>60); GFR (African American) 95 ML/MIN (>60); Globulin 3.1 g/dL (1.3-3.2); Glucose 96 mg/dl (74-100); Magnesium 1.9 mg/dl (1.6-2.3); Potassium 4.1 mmoL/L (3.5-5.1); Sodium 134 mmol/L (136-145); Total Protein,Serum 7.9 g/dl (6.3-8.2)
[2025-05-13 18:16] LABS: INR 1.00 (0.9-1.1); Prothrombin Time 11.1 seconds (10.1-12.5)
[2025-05-13 18:20] LABS: NT Pro Brain Natriuretic Pep. 93.1 pg/mL (0-125)
[2025-05-13 18:23] LABS: Coronavirus 19, PCR Not Detected (NotDetected); Influenza A, PCR Not Detected (NotDetected); Influenza B, PCR Not Detected (NotDetected)
[2025-05-13 18:24] LABS: Troponin I < 0.01 ng/ml (0.00-0.034)
[2025-05-13] MEDS: 0.9 % SODIUM CHLORIDE 50 ML VIAL IV (18:31)
[2025-05-13] MEDS: IOPAMIDOL-370 (76%);100ML BOTTLE 80 ML IV (18:31)
[2025-05-13] MEDS: BELLADONNA ALKALOIDS 60 ML ML PO (18:49)
[2025-05-13 18:54] VITALS: BP 145/97; PULSE 79; RESP 19; O2SAT 99
[2025-05-13 19:00] VITALS: BP 129/94; PULSE 74; RESP 19; O2SAT 97
[2025-05-13 19:05] LABS: Hepatitis C Ab Qual. W/ RFX NEGATIVE (Negative)
[2025-05-13 19:26] VITALS: BP 129/94; PULSE 74; RESP 18; TEMP 37.3; O2SAT 99
== END 2025-05-13 19:28 | disposition home or self-care (01) ==
PROVIDERS: Physician Assistant; Emergency Provider Emergency Medicine
DX: R07.9 Chest pain, unspecified (principal); R06.2 Wheezing; R06.02 Shortness of breath; R05.9 Cough, unspecified; F17.210 Nicotine dependence, cigarettes, uncomplicated
CPT/HCPCS: 71045; 71275; 80053; 83735; 83880; 84484; 85025; 85610; 86803; 87389; 87636; 93005; 96374; 96375; 99285; J2270; J2405; Q9967

== ENCOUNTER 2025-05-28 14:38 | Outpatient (CLI) | payer MEDICAID, SELFPAY ==
--- OUTSIDE RECORDS SUMMARY | 2025-05-28 14:41 | XMS_ITS | Clinical Summary ---
Author Organization [facility] Address [address] [place] [address] Phone Care Team Providers Care Lead Performance Support Analyst Name Role Phone Unavailable Primary Care Provider Unavailabl e Allergies No known active allergies Medications oxyCODONE-aceta minophen (PERCOCET) 5-325 mg Oral Tablet Take 1-2 Tabs by mouth every 4 hours as needed for Pain. 20 Tab 6 Active Additional Information Patient not taking.Reason: Therapy Completed, Reported on 03/06/2019 Social History Tobacco Use Types Packs/Day Years Used Date Smoking Tobacco: Every Day Cigarettes Smokeless Tobacco: Never Alcohol Use Standard Drinks/Week Comments No 0 (1 standard drink = 0.6 oz pur e alcohol) Sex and Gender Information Value Date Recorded Sex Assigned at Not on file Legal Sex Male 6:21 PM EDT Gender Identity Not on file Sexual Orientation Not on file Last Filed Vital Signs Vital Sign Reading Time Taken Comments Blood Pressure 145/62 11/21/2021 4:45 AM EDT Pulse 54 11/21/2021 3:49 AM EDT Temperature 36.9 C (98.5 F) 03/06/2019 12:36 PM EDT Respiratory Rate 16 11/21/2021 3:49 AM EDT Oxygen Saturation 100% 11/21/2021 3:49 AM EDT Inhaled Oxygen Concentration - - Weight 81.6 kg (180 lb) 11/21/2021 3:49 AM EDT Height 175.3 cm (5' 9 ) 11/21/2021 3:49 AM EDT Body Mass Index 26.58 11/21/2021 3:49 AM EDT Plan of Treatment Health Maintenance Due Date Last Done Comments Annual Wellness Exam 12/24/1974 DTaP/TDaP/Td (1 - Tdap) 12/24/1990 Hepatitis B Vaccine (1 of 3 - 19+ 3-dose series) 12/24/1990 Cologuard 12/24/2016 Colon Cancer Screening 12/24/2016 Colonoscopy 12/24/2016 FIT 12/24/2016 Sigmoidoscopy 12/24/2016 Virtual Colonography 12/24/2016 Pneumococcal Vaccine 50+ (1 of 1 - PCV) 12/24/2021 Zoster (1 of 2) 12/24/2021 COVID-19 Vaccine (1 - 2024-2 6 season) 2025 Influenza Vaccine (#1) 2025 Meningococcal B Vaccine Aged Out No l onger eligible based on patient's age to complete this topic Insurance MDR MDR
--- OUTSIDE RECORDS SUMMARY | 2025-05-28 14:41 | XMS_ITS | Clinical Summary ---
Author Organization [facility] Address [address] [place] [address] Care Team Providers Care Icu Clerk Name Role Phone Pcp, No Primary Care Provider [phone] Source Comments This information has been disclosed to you from confidential records protectedfrom disclosure by state law. You shall make no further disclosure of thisinformation without the specific, written, and informed release of theindividual to whom it pertains, or as otherwise permitted by law. A generalauthorization for the release of medical or other information is not sufficientfor the purposes of therelease of HIV test results or diagnoses. [id number] Allergies No known active allergies Medications triamcinolone (KENALOG) 0.1 % cream Apply once daily to affected area for rash no longer than one month 454 g 3 05/19/2020 Active Social History Tobacco Use Types Packs/Day Years Used Date Smoking Tobacco: Some Days Cigarettes Smokeless Tobacco: Never Alcohol Use Standard Drinks/Week Comments No 0 (1 standard drink = 0.6 oz pur e alcohol) Sex and Gender Information Value Date Recorded Sex Assigned at Not on file Legal Sex Male 10:05 AM EDT Gender Identity Not on file Sexual Orientation Not on file Last Filed Vital Signs Vital Sign Reading Time Taken Comments Blood Pressure 162/102 04/13/2016 10:15 AM EDT Pulse 69 04/13/2016 10:15 AM EDT Temperature 36.8 C (98.2 F) 04/13/2016 10:15 AM EDT Respiratory Rate 18 04/13/2016 10:15 AM EDT Oxygen Saturation 100% 04/13/2016 10:15 AM EDT Inhaled Oxygen Concentration 100% 04/13/2016 1 0:15 AM EDT Weight 87.5 kg (193 lb) 05/19/2020 10:15 AM EST Height 175.3 cm (5' 9 ) 05/19/2020 10:15 AM EST Body Mass Index 28.5 05/19/2020 10:15 AM EST Plan of Treatment Not on file Insurance Care Teams Icu Clerk Relationship Specialty Start Date End Date Pcp, No No Address PCP - General Pediatrics 04/13/16
--- NOTE | 2025-05-28 15:15 | CA_ITS ---
APPROVED REPORT EXAM: Comprehensive 2D, Doppler, and color-flow Echocardiogram Racing Manager: Brittney Ortega RVT Ht: 5 ft 9 in Wt: 197lbs BSA: 2.05 BP: 152/84 mmHg Indications: CHEST PAIN,ABNORMAL EKG 2D Dimensions LA Volume 21.80 mL LA Volume Index 10.63 mL/m2 (M/F) 16-34 M-Mode Dimensions RVDd 2.28 cm (0.9-2.6) LA Diam 3.20 cm (1.9-4.0) LVDd 5.87 cm (3.5-5.7) LVDs 4.29 cm (3.5-5.7) IVSd 0.97 cm (0.6-1.1) PWd 0.59 cm (0.6-1.1) EF (Teich) 51.80% FS 26.90% EDV (Teich) 171.20 mL TAPSE 1.98 (<1.7) ESV (Teich) 82.60 mL LV Diastology E Decel Time 293 (160-240 msec) E/A Ratio 0.8 Aortic Valve BIENVENIDO Index 1.65 cm2/m2 AoV Peak Danny. 104.0 (50-130 cm/s) AI PHT 2635.00 ms AO Peak GR. 4.30 mmHg AO Mean GR. 2.60 (<5 mmHg) AO VTI 19.1 (18-25 cm) BIENVENIDO (VTI) 3.47 (2.5-4.5 cm2) Mitral Valve MV E Max Danny. 63.0 (40-130 cm/s) MV A Velocity 77.0 (40-130 cm/s) E/A Ratio 0.82 MV PHT 86.0 ms Pulmonary Valve PV Peak Velocity 63.0 (50-150 cm/s) Left Ventricle The left ventricle is normal size. Left ventricular systolic function is mildly reduced. There is increased left ventricular wall thickness. There is moderate hypokinesis of the basal inferoseptal LV wall. Grade 1 diastolic dysfunction is present. LVEF is 45%. Right Ventricle The right ventricle is normal size. The right ventricular systolic function is normal. Atria The left atrium size is normal. The right atrium size is normal. There is no color Doppler evidence of interatrial shunt. Aortic Valve The aortic valve is mildly thickened. There is no hemodynamically significant aortic valvular stenosis. Mild aortic regurgitation is present. Mitral Valve The mitral valve is normal in structure. No evidence of mitral valve stenosis. Trace mitral regurgitation is present. Tricuspid Valve The tricuspid valve leaflets are thin and pliable. Trace tricuspid regurgitation. There is insufficient TR jet to estimate RVSP. Pulmonic Valve The pulmonary valve is grossly normal in structure. Trace pulmonic valve regurgitation is present. Great Vessels The aortic root is normal in size. IVC is normal in size and collapses >50% with inspiration. Pericardium There is no pericardial effusion. Other Information Study Quality: Fair Conclusion Mildly reduced LV systolic function (LVEF 45%). Moderate hypokinesis of the basal inferoseptal LV wall. Mild AI. Electronically signed by : Esme Prescott MD 06/06/2025 17:26:56
== END 2025-05-28 23:59 | disposition home or self-care (01) ==
LOC: RT 14:38
PROVIDERS: Visit Provider Nurse Practitioner Family
DX: I35.1 Nonrheumatic aortic (valve) insufficiency (principal); I51.89 Other ill-defined heart diseases; R94.31 Abnormal electrocardiogram [ECG] [EKG]; R93.1 Abnormal findings on diagnostic imaging of heart and coronary circulation
CPT/HCPCS: 93306

== ENCOUNTER 2025-06-03 11:14 | Outpatient (CLI) | payer MEDICAID, SELFPAY ==
[2025-06-03 11:30] VITALS: BP 140/92; BP 180/102; PULSE 69; RESP 16
--- NOTE | 2025-06-03 11:30 | CA_ITS ---
APPROVED REPORT Exam: Exercise Treadmill Technologist: Ericka Reeves Stress Nurse: Kita COVINGTON, RN Ht: 5 ft 9 in Wt: 197 lbs BSA: 2.05 m2 HR: 69 bpm BP: 140/92 mmHg Indications: Chest pain Stress Test Details Test: Exercise stress testing was performed using a Clifford protocol. HR Resting HR: 69 bpm Max Heart Rate (APMHR): 167.196163 bpm Max HR Achieved: 124 bpm Target HR (85% APMHR): 141.706668 bpm % of APMHR: 74.25 Recovery HR: 81 bpm BP Resting BP: 140.0/92.0 mmHg Max BP: 180.0/102.0 mmHg Recovery BP: 144.0/91.0 mmHg ECG Stress ECG Conclusion Requested to stop test at 6:16 minutes due to leg pain. Symptoms: Leg pain Arrhythmias/Ectopy: Sinus arrhythmia, PAC ST-T Changes: Less than 0.[address] segment changes. Electronically signed by : Esme Prescott MD 06/09/2025 13:20:24
== END 2025-06-03 23:59 | disposition home or self-care (01) ==
LOC: RT 11:15
PROVIDERS: Visit Provider Nurse Practitioner Family
DX: I49.1 Atrial premature depolarization (principal); R94.31 Abnormal electrocardiogram [ECG] [EKG]
CPT/HCPCS: 93017; 93018

== ENCOUNTER 2025-06-25 11:55 | Outpatient (CLI) | payer MEDICAID, SELFPAY ==
--- OUTSIDE RECORDS SUMMARY | 2025-06-25 11:57 | XMS_ITS | Clinical Summary ---
Author Organization [facility] Address [address] [place] [address] Phone Care Team Providers Care Combine Mechanic Name Role Phone Unavailable Primary Care Provider [...]
--- OUTSIDE RECORDS SUMMARY | 2025-06-25 11:57 | XMS_ITS | Clinical Summary ---
Author Organization [facility] Address [address] [place] [address] Care Team Providers Care Construction Grip Name Role Phone Pcp, No Primary Care [...] therelease of HIV test results or diagnoses. [id number] Allergies No known active allergies Medications [...] Treatment Not on file Insurance Care Teams Construction Grip Relationship Specialty Start Date End Date Pcp, No No Address PCP - General Pediatrics 04/13/16
[2025-06-25 12:05] VITALS: BMI 29.2
[2025-06-25 12:37] VITALS: BP 131/82; PULSE 65; RESP 18; TEMP 36.4; O2SAT 98
[2025-06-25 12:57] LABS: Chloride 107 mmol/L (98-107); Potassium 4.1 mmoL/L (3.5-5.1); Sodium 139 mmol/L (136-145)
[2025-06-25 13:00] LABS: Anion Gap 10.1 mEq/L (5-15); Blood Urea Nitrogen 8 mg/dl (9-20); Calcium 9.2 mg/dl (8.4-10.2); Carbon Dioxide 26 mmol/L (22.0-30.0); Creatinine Clearance Estimated 99 mL/min (50-200); Creatinine,Serum 1.10 mg/dl (0.66-1.25); Estimated Glomerular Filt Rate 70 ml/min (>60); GFR (African American) 85 ML/MIN (>60); Glucose 102 mg/dl (74-100)
--- NOTE | 2025-06-25 13:00 | CT_ITS ---
APPROVED REPORT Military Equipment Specialist: CLINICAL INDICATION Chest Pain TECHNIQUE Image Acquisition: A 128 slice MDCT scanner ([employer] Repligena View) was used for data acquisition. A noncontrast coronary calcium scan was performed. A CT attenuation threshold of 130 Hounsfield units (HU) was used for the detection of calcium in contiguous voxels of 1 sq mm in area to be counted as individual lesions. Bolus tracking in the ascending aorta with a threshold of 180 HU was performed. Immediately afterwards, ECG synchronized cardiac CT was then performed from the cardiac base to apex using retrospective gating with ECG tube current modulation. A total of 85 mL of Isovue 370 mg/mL contrast medium was administered at 5 mL/sec followed by a saline flush using a biphasic injection protocol. A tube voltage of 120 KVp was used. Image Reconstruction Transaxial images were reconstructed at 0.67 mm slide thickness. Data was reviewed interactively on an advanced workstation capable of 2 and 3-dimensional displays in all conventional reconstruction formats, including multiplanar reformations, maximum intensity projections, curved multiplanar reformations, and volume rendered reconstructions. When applicable, selected routine images describing the relevant coronary anatomy and pathology were saved and sent to PACS. Complications None Technical Quality Overall image quality was good. Coronary artery opacification was adequate. Total DLP (Dose-Length Product) is 1430.4 mGy-cm. The reported value represents the total of one or more individual components during the CT acquisition of this date and at this time, and as such, the same value may appear in more than one CT report depending on the interpreting/reporting physicians. COMPARISON None FINDINGS CT Coronary Calcium Scoring LMA (Left Main Artery) = 0 LAD (Left Anterior Descending) = 0 LCX (Left Coronary Circumflex) = 0 RCA (Right Coronary Artery) = 0 Total Calcium Score = 0 using the AJ-130 method. The interpretation of the calcium heart score is based on the following continuum*: 0 = no calcified plaque detected (risk of coronary artery disease is very low ??? less than 5%) 1-10 = calcium detected in extremely minimal levels (risk of coronary diseases is still low ??? less than 10%) 11-100 = mild levels of plaque detected with certainty (mild or minimal narrowing of heart arteries is likely) 101-400 = definite,at least moderate levels of plaque detected (relatively high risk of a heart attack within 3-5 years) >401-999 = extensive levels of plaque detected (high risk of heart attack, high levels of vascular disease are present, high likelihood of at least one significant coronary narrowing) *The calcium heart score quantifies the burden of coronary calcification/plaque in the coronary arteries. The calcium heart score is not able to evaluate the presence or burden of non-calcified (i.e. soft) plaque. There is no identifiable calcification in the aortic valve, mitral annulus or mitral valve, pericardium, or myocardium. Coronary CT Angiography The coronary arterial system is right dominant. Quantitative Stenosis Grading: Left Main (LM): The left main originates normally from the left sinus of Valsalva. The LM bifurcates into the left anterior descending artery and left circumflex artery. The LM is patent with no evidence of atherosclerosis. Left Anterior Descending (LAD) and Diagonal Branches: The LAD gives off 3 diagonal branch(es). The LAD and its branches are patent with no evidence of atherosclerosis. There is no evidence of LAD-myocardial bridge. Left Circumflex (LCX) and Obtuse Marginals (OM): The LCX gives off 1 Obtuse Marginal (OM) branch(es). The LCX and its branches are patent with no evidence of atherosclerosis. Right Coronary Artery (RCA): The RCA originates normally from the right sinus of Valsalva. The RCA gives off a posterior descending artery (PDA) and posterolateral (PL) branches. The RCA and its branches are patent with no evidence of atherosclerosis. Non-Coronary Cardiac Findings: Analysis of the left ventricular (LV) structure and function was performed after 3-D reconstruction of the LV from axial images, with user-corrected automatic contouring for assessment of LV volumes and user-defined reconstruction from oblique planes for measurement of 3-D cardiac structure and function. -The left ventricle systolic function is normal. -There is no left atrial appendage filling defect. Two right pulmonary veins and two left pulmonary veins drain normally into the left atrium. -No pericardial thickening or calcification. -Central and branch pulmonary arteries in the [id number] are unremarkable. -Thoracic aorta within the visualized thoracic aortic-branches in the [id number] is unremarkable. Extracardiac Structures No significant extra-cardiac findings. Note, however, that this study is focused on the cardiac findings. IMPRESSION -Absence of coronary calcification with an Agatston score = 0 using the AJ-130 method. -No evidence of significant flow-limiting atherosclerosis of the coronary arteries. -No evidence of coronary anomalies or myocardial bridging. -CAD-RADS 0. Management recommendations per ACC/AHA guidelines*, as clinically appropriate. *Recommendations: CAD RADS 0: Reassurance. Consider non-atherosclerotic causes of chest pain. CAD RADS 1: Consider non-atherosclerotic causes of chest pain. Consider preventive therapy and risk factor modification. CAD RADS 2: Consider non-atherosclerotic causes of chest pain. Consider preventive therapy and risk factor modification, particularly for patients with nonobstructive plaque in multiple segments. CAD RADS 3: Consider further functional testing. Consider symptom-guided anti-ischemic and preventive pharmacotherapy as well as risk factor modification per published guideline statements. CAD RADS 4A: Consider further functional testing or invasive coronary angiography with revascularization per published guideline statements. Consider symptom-guided anti-ischemic and preventive pharmacotherapy as well as risk factor modification per published guideline statements. CAD RADS 4B: Invasive coronary angiography recommended with revascularization per published guideline statements. Consider symptom-guided anti-ischemic and preventive pharmacotherapy as well as risk factor modification per published guideline statements. CAD RADS 5: Consider invasive angiography and/or viability assessment with revascularization per published guideline statements. Consider symptom-guided anti-ischemic and preventive pharmacotherapy as well as risk factor modification per published guideline statements. CRITICAL RESULT None COMMUNICATION Per this written report The coronary and cardiac findings of this CCTA were reviewed, reported, and signed by Yovani Prescott MD (Quarantine Officer). Conclusion Electronically signed by : Esme Prescott MD 06/30/2025 01:28:15
[2025-06-25 13:41] VITALS: BP 164/109; PULSE 63; RESP 18; TEMP 36.1; O2SAT 100
[2025-06-25] MEDS: NITROGLYCERIN 0.4MG SL TABLET SL (13:41)
[2025-06-25 13:44] VITALS: BP 145/80; PULSE 56; RESP 18; TEMP 36.1; O2SAT 100
[2025-06-25] MEDS: 0.9 % SODIUM CHLORIDE 50 ML VIAL IV (13:45)
[2025-06-25] MEDS: SODIUM CHLORIDE 0.9% 10ML SYR (RAD ONLY) 10 ML IV (13:45)
[2025-06-25] MEDS: IOPAMIDOL-370 (76%);100ML BOTTLE 85 ML IV (13:46)
[2025-06-25 13:48] VITALS: BP 117/67; PULSE 64; RESP 18; TEMP 36.1; O2SAT 99
[2025-06-25 13:52] VITALS: BP 113/68; PULSE 63; RESP 18; TEMP 36.1; O2SAT 98
== END 2025-06-25 14:00 | disposition home or self-care (01) ==
PROVIDERS: PCP Nurse Practitioner Family; Visit Provider Nurse Practitioner Family
DX: I50.21 Acute systolic (congestive) heart failure (principal); I42.8 Other cardiomyopathies; R93.1 Abnormal findings on diagnostic imaging of heart and coronary circulation; R07.89 Other chest pain
CPT/HCPCS: 75574; 80048; Q9967